=== PATIENT | female | born 1940 | race Caucasian/White ===

== ENCOUNTER 2023-10-07 16:03 | Emergency (ER) | payer SELFPAY ==
[2023-10-07] VITALS (8 sets, daily range): BP systolic 157–180; BP diastolic 68–88
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
[2023-10-07] MEDS: TYLENOL 1000 MG PO (18:31)
[2023-10-07 18:47] LABS: % Basophils 0.5 % (0-2); % Eosinophils 0.5 % (0-6); % Immature Granulocytes 0.8 % (0-0.5); % Lymphocytes 16.1 % (20.5-51.1); % Monocytes 5.7 % (1.7-9.3); % Neutrophils 76.4 % (42.2-75.2); Absolute Basophils 0.1 10^3/uL (0-0.2); Absolute Eosinophils 0.1 10^3/uL (0-0.7); Absolute Immature Granulocytes 0.1 10^3/uL (0-0.05); Absolute Monocytes 1.1 10^3/uL (0.1-0.6); Absolute Neutrophils 14.1 10^3/uL (1.4-6.5); Hematocrit 32.6 % (37.0-47.0); Hemoglobin 10.6 g/dL (12.0-16.0); Mean Corp Hgb Conc. 32.5 g/dL (33.0-37.0); Mean Corpuscular Hgb 20.7 pg (27.0-31.0); Mean Corpuscular Volume 63.8 fL (81.0-99.0); Nucleated Red Blood Cells % 0 %; Platelet Count 276 10^3/uL (130-400); Red Blood Cell Count 5.11 10^6/uL (4.20-5.40); Red Cell Dist. Width 19.5 % (11.5-14.5); White Blood Cell Count 18.5 10^3/uL (4.8-10.8)
[2023-10-07 19:00] LABS: ALT (SGPT) 31 U/L (0-35); AST (SGOT) 48 U/L (14-36); Albumin 4.4 g/dl (3.5-5.0); Alkaline Phosphatase 75 U/L (38-126); Blood Urea Nitrogen 12 mg/dl (7-17); Calcium 9.2 mg/dl (8.4-10.2); Carbon Dioxide 26 mmol/L (22-30); Chloride 105 mmol/L (98-107); Glucose 103 mg/dl (70-99); Potassium 3.8 mmol/L (3.5-5.1); Sodium 140 mmol/L (135-145); Total Bilirubin 0.7 mg/dl (0.2-1.3); eGFR > 60.00
[2023-10-07] MEDS: MORPHINE SULFATE 1 MG IV (20:38)
== END 2023-10-07 20:52 | disposition home or self-care (01) ==
LOC: EMR 16:03
PROVIDERS: Physician Assistant; EMERGENCY PHYSICIAN Emergency Medicine; FAMILY PHYSICIAN Internal Medicine
DX: M25.562 Pain in left knee (principal); V43.62XA Car passenger injured in collision with other type car in traffic accident, initial encounter; R03.0 Elevated blood-pressure reading, without diagnosis of hypertension; E78.5 Hyperlipidemia, unspecified
CPT/HCPCS: 99285; 96374; 70450; 71260; 72125; 73564; 74177; 80053; 85025; 93005; Q9967

== ENCOUNTER 2024-03-14 15:04 | Inpatient (IN) | payer OTHER, SELFPAY ==
[2024-03-13] VITALS (8 sets, daily range): BP systolic 143–178; BP diastolic 65–75; BMI 30.6
[2024-03-13 17:49] LABS: Glucose - Point of Care 142 mg/dl (70-99)
--- NOTE | 2024-03-13 18:04 | ED.CVA ---
History of Present Illness
General
Chief Complaint: CVA/TIA Symptoms
Source: patient and ambulance crew
Exam Limitations: none
Time Seen by Provider: 03/13/24 17:49
Onset of Stroke Symptoms
Onset of symptoms known: Yes
Date of onset of symptoms: 03/13/24
Time of onset of symptoms: 17:00
Time pt last seen normal is known: Yes
Date last time pt seen normal: 03/13/24
Time last time pt seen normal: 17:00
History of Present Illness
History of Present Illness:
83-year-old female normal neurologic history presents with sudden onset of brief right arm weakness that self resolved but ongoing aphasia and facial droop while at dinner at [employer]. Started at 5 PM. Was still present upon medic arrival at
about 530. However was resolved by the time she arrived here. No history of same.
Past History
Past History
ED Past Medical History: GERD, Valvular disease (Mitral regurgitation) and Other (Restless leg syndrome and depression, prior vasovagal episodes)
ED Past Surgical History: Orthopedic (Microdiscectomy lumbar spine)
Social History
Tobacco: Non-smoker
Personal:
Living: with family
Family History
Family History: Unable to obtain
Review of Systems
Review of Systems
All Other Systems: Not applicable
Constitutional: Reports no symptoms
Respiratory: Reports no symptoms
Cardiac: Reports no symptoms
ABD/GI: Reports no symptoms
Phy Exam
Physical Exam
Physical Exam:
GENERAL: Alert and oriented in no apparent distress
EYE: Orbits normal. Extraocular muscles intact
NECK: Supple, no carotid bruit
CARDIAC: Regular rate and rhythm without any obvious murmurs.
LUNGS: Clear breath sounds,normal
ABDOMEN: Soft, without focal tenderness or distention
NEUROLOGICAL: Alert and oriented , speech normal and tested with our stroke papers. Cranial nerves II through XII intact. Extraocular muscles intact. [id number] normal. No drift. Good lower extremity strength. Light touch intact.
SKIN: Warm and dry, no rash or lesion, no discoloration, skin intact.
MUSCULOSKELETAL: No edema,no deformity.Good color
PSYCH: Normal and appropriate interaction.
Course
Orders/Labs/Results
Orders:
Orders
03/13/24 17:45
Electrocardiogram (*1) Urgent
Reason for Study: TIA/Stroke
CT HEAD STROKE ALERT W/o Cont Urgent
Comment:
Reason For Exam: aphasia
CT HEAD/NECK ANG STROKE ALERT Urgent
Comment:
Reason For Exam: aphasia
EKG- Treatment ONCE
03/13/24 18:20
Complete Blood Count/With Diff Urgent
Comprehensive Metabolic Panel Urgent
PT/INR [Prothrombin Time] Urgent
PTT Urgent
03/13/24 18:50
Aspirin Chewable [Low Strength Aspirin] 324 mg PO NOW STA
Clopidogrel Bisulfate [Plavix] 75 mg PO NOW STA
03/13/24 19:38
Admit/Transfer Patient As Directed
Co-Sign Provider:
Level of Care: Observation services
Assign to:: Telemetry
Physician / Group: hospitalist
Diagnosis: TIA
Reason for Telemetry: CVA/TIA
Date to Stop Telemetry: 03/16/24
Time to Stop Telemetry: 11:00
PRN Pain Medication Management As Directed
May give lesser potent ordered pain med per pt: Yes
preference::
Protocol:: Medication orders for pain may be administered in a
manner that supports deferring to patient preference
when the pt is:
- Requesting an ordered lesser potent pain medication.
Least to most potent pain medications are defined
as: acetaminophen < NSAID < tramadol < opioids
(morphine, oxycodone, hydromorphone).
- Requesting a lesser dose of the same medication IF
ORDERED.
- Requesting a less intrusive route of administration
if both routes are prescribed by the provider (PO <
IV).
03/13/24 19:39
Code Status As Directed
Resuscitation Status: Full Code
03/13/24 19:43
Nebivolol HCl [Bystolic] 2.5 mg PO ONCE ONE
03/13/24 22:39
Acetaminophen [Tylenol/Feverall] 650 mg RECTAL Q4HPRN PRN
Acetaminophen [Tylenol] 650 mg PO Q4HPRN PRN
Gabapentin [Neurontin] 100 mg PO HS
03/13/24 22:39
Echo 2D MMode Color/Doppler Routine
Reason for Study: stroke/TIA
Case Management Consult ONCE
Case Management Consult: Discharge Planning
Comment: stroke/tia
NEUROLOGY CONSULT Routine
Consulting Provider: Federico Sam
Was physician already notified: Yes
Reason for consult: cva/tia
Straw Hat Presser Urgent
MR Brain Without Contrast Routine
Comment:
Reason For Exam: stroke/TIA
Recent pill cam endoscopy?: No
Activity As Directed
Activity Level: With Assistance
NIH Stroke Scale As Directed
Directions: Per protocol
Comment: every shift and with any change in condition or mental status
Neurological Checks As Directed
Frequency: q4h
Additional Instructions:: q4h x 24h upon admission to the floor, then qshift & with any change in condition
and mental status
Patient Education As Directed
Type: Stroke education packet
Comment: provide to patient and family
Pneumatic Compression Sleeves As Directed
Type: Knee high
Vital Signs As Directed
Frequency: Per unit guidelines
Ot Eval And Treat Routine
Pt Eval And Treat Routine
Activity Level: With Assistance
Speech Therapy Eval & Treat Routine
DX Deep Vein Thrombosis Video Routine
03/14/24 06:00
Cardiovascular Evaluation IN AM
Complete Blood Count/No Diff IN AM
Erythrocyte Sed Rate IN AM
Glycohemoglobin (HgbA1c) IN AM
03/14/24 08:00
Aspirin Chewable [Low Strength Aspirin] 81 mg PO DAILY
Atorvastatin [Lipitor] 20 mg PO DAILY
Clopidogrel Bisulfate [Plavix] 75 mg PO DAILY
Escitalopram Oxalate [Lexapro] 20 mg PO DAILY
Pantoprazole [Protonix] 40 mg PO DAILY
03/14/24 18:00
Enoxaparin Sodium [Lovenox] 40 mg SC QPM
Nebivolol HCl [Bystolic] 2.5 mg PO QPM
03/16/24 11:00
DC Protocol for Telemetry ONCE
Abnormal Lab Results
03/13/24 03/13/24
17:48 18:20
WBC 14.9 H 10^3/uL
(4.8-10.8)
Hgb 11.2 L g/dL
(12.0-16.0)
Hct 35.8 L %
(37.0-47.0)
MCV 66.5 L fL
(81.0-99.0)
MCH 20.8 L pg
(27.0-31.0)
MCHC 31.3 L g/dL
(33.0-37.0)
RDW 19.1 H %
(11.5-14.5)
MPV 10.7 H fL
(7.4-10.4)
Abs Immat Gran (auto) 0.1 H 10^3/uL
(0-0.05)
Absolute Neuts (auto) 8.2 H 10^3/uL
(1.4-6.5)
Absolute Lymphs (auto) 5.4 H 10^3/uL
(1.2-3.4)
Absolute Monos (auto) 1.0 H 10^3/uL
(0.1-0.6)
Immature Gran % 0.6 H %
(0-0.5)
Glucose 134 H mg/dl
(70-99)
POC Glucose 142 H mg/dl
(70-99)
03/13/24 18:20
03/13/24 18:20
Vital Signs
Initial and Last Documented VS:
Initial Vital Signs
Pulse Ox
97
03/13/24 17:43
Last Documented Vital Signs
Temp Pulse Resp BP Pulse Ox
98.1 F 65 18 143/73 97
03/13/24 18:38 03/13/24 22:15 03/13/24 18:38 03/13/24 22:00 03/13/24 22:15
MDM/Problems Addressed
Differential Diagnosis Includes:
History all consistent with TIA. Symptoms have resolved. Sent for CT and CTA. Previous renal function was normal. Discussed with neurology. If all is stable start aspirin and loaded with Plavix 300 mg. Family updated
*Radiology
Radiology exam reviewed: radiology read reviewed (neg head)
*Pulse Oximetry
Patient hypoxic: no
*EKG
Interpreted by ED Provider?: Yes
Interpretation: normal
Comparison EKG: no changes
Heart Rate: 81
Rate: normal
Rhythm: sinus
[place]: normal axis
Interval: normal interval
QRS Pattern: normal QRS
Ischemia: no ischemia
*Critical Care Note
Total Time (30-74mins, 75-104mins- exclusive of procedures): 45
Data Reviewed
Review of Other/Old Records Reveals: Labs and Testing
ED Attending Note
-
Portions of this chart may have been created with voice recognition software.� Occasional wrong word or��sound alike� substitutions may have occurred due to the inherent limitations of voice recognition software.
Discharge Plan
Departure
Patient Disposition: Admit
Date of Disposition: 03/13/24
Time of Disposition: 19:04
Presentation/result/management discussed w/ accepting MD/DO: Neurology/Sam
Discharge Problem:
Expressive aphasia TIA
Interventions
Interventions:
*Risk Screen - Suicide Last Done: 03/13/24 18:38
*General Assessment Last Done: 03/13/24 18:38
*Neglect/Abuse Screening Last Done: 03/13/24 18:38
ED- Fall Risk Assessment Last Done: 03/13/24 18:59
*ED COVID-19 Vaccine History Last Done: 03/13/24 18:38
ED- Pulmonary Assessment Last Done: 03/13/24 18:59
ED- Neurological Assessment Last Done: 03/13/24 18:59
ED- Cardiac Assessment Last Done: 03/13/24 18:59
ED Swallowing Screen Last Done: 03/13/24 18:59
[2024-03-13 18:27] LABS: % Basophils 0.6 % (0-2); % Eosinophils 1.1 % (0-6); % Immature Granulocytes 0.6 % (0-0.5); % Lymphocytes 36.3 % (20.5-51.1); % Monocytes 6.5 % (1.7-9.3); % Neutrophils 54.9 % (42.2-75.2); Absolute Basophils 0.1 10^3/uL (0-0.2); Absolute Eosinophils 0.2 10^3/uL (0-0.7); Absolute Immature Granulocytes 0.1 10^3/uL (0-0.05); Absolute Lymphocytes 5.4 10^3/uL (1.2-3.4); Absolute Neutrophils 8.2 10^3/uL (1.4-6.5); Hematocrit 35.8 % (37.0-47.0); Hemoglobin 11.2 g/dL (12.0-16.0); Mean Corp Hgb Conc. 31.3 g/dL (33.0-37.0); Mean Corpuscular Hgb 20.8 pg (27.0-31.0); Mean Corpuscular Volume 66.5 fL (81.0-99.0); Mean Platelet Volume 10.7 fL (7.4-10.4); Nucleated Red Blood Cells % 0 %; Platelet Count 322 10^3/uL (130-400); Red Blood Cell Count 5.38 10^6/uL (4.20-5.40); Red Cell Dist. Width 19.1 % (11.5-14.5); White Blood Cell Count 14.9 10^3/uL (4.8-10.8)
[2024-03-13 18:39] LABS: APTT 26.6 Sec (23.4-35.0); INR 1.01; PT 13.6 Sec (11.4-14.6)
[2024-03-13 18:42] LABS: ALT (SGPT) 22 U/L (0-35); AST (SGOT) 22 U/L (14-36); Albumin 4.5 g/dl (3.5-5.0); Alkaline Phosphatase 62 U/L (38-126); Blood Urea Nitrogen 17 mg/dl (7-17); Calcium 9.3 mg/dl (8.4-10.2); Carbon Dioxide 26 mmol/L (22-30); Chloride 103 mmol/L (98-107); Estimated Creatinine Clearance 62 ml/min; Glucose 134 mg/dl (70-99); Potassium 3.8 mmol/L (3.5-5.1); Sodium 138 mmol/L (135-145); Total Bilirubin 0.6 mg/dl (0.2-1.3); eGFR > 60.00
[2024-03-13] MEDS: LOW STRENGTH ASPIRIN 324 MG PO (19:18)
[2024-03-13] MEDS: PLAVIX 75 MG PO (19:19)
--- NOTE | 2024-03-13 19:30 | HPS.HSE ---
Family Physician
-
Family Physician:
Chief Complaint
-
Aphasia
History of Present Illness
This is an 83-year-old with past medical history significant for hyperlipidemia, GERD, anxiety and history of palpitations who presents to the emergency department from independent living with episode of aphasia that started at around 5 PM.
Patient reports denies any usual state of health without any symptoms. She exercised for about 25 minutes on a stationary bicycle which is a little bit unusual for her but was otherwise doing well except for some fatigue. She was resting in her
home at 5 PM when she realized that she could not speak what she wanted to say. Facility members also noted that she had a right facial droop. Patient reported that there was a very brief episode lasting perhaps less than a minute or for right arm
weakness and numbness. She denies any blurry vision or double vision. She denies any other symptoms. By the time she arrived in the emergency department symptoms are mostly resolved. There was no facial droop and the aphasia are mostly resolved.
Patient denies any prior history of TIA. She has palpitations but that never been diagnosed with any arrhythmia.
In the emergency department she was initially hypertensive 178/71 with a pulse of 68 satting 99% on room air. Basic electrolytes BUN/creatinine were normal. CBC notable for a white count of [address] of the head shows no
acute bleed and no mass effect or significant stroke. CT angio of the head and neck shows patent vessels throughout without any dissection aneurysm thrombus no critical stenosis. Patient discussed with neurology. Recommending initiation of dual
antiplatelet therapy.
Medical History
Past Medical History
Past Medical History: Reports GERD and Hypercholesterolemia
Past Surgical History: Reports Orthopedic (R ankle surgery)
Social History
Tobacco: Non-smoker
Alcohol: Occasional
Drug: None
Personal: Single
Living: Assisted Living
Employment: Retired
Family History
Family History: Not pertinent
Allergies / Home Medications
Allergies reflects when Allergies were last updated in [employer].
Home Medications with original date entered in [employer]
Allergy/Medication List:
Allergies
Allergy/AdvReac Type Severity Reaction Status Date / Time
Penicillins Allergy Hives Verified 03/13/24 18:16
Sulfa (Sulfonamide Allergy Swelling Verified 03/13/24 18:16
Antibiotics)
Home Medications
escitalopram oxalate 20 mg tablet 20 mg PO DAILY 04/01/13
gabapentin 100 mg capsule 100 mg PO HS 04/01/13
omeprazole 20 mg tablet,delayed release 40 mg PO DAILY 04/01/13
simvastatin 40 mg tablet 40 mg PO DAILY 04/01/13
nebivolol 2.5 mg tablet (Bystolic) 2.5 mg PO QPM 10/07/23
calcium 500 mg (as carbonate)-vitamin D3 10 mcg (400 unit) tablet (Calcium 500 + D) 1 tab PO BID 03/13/24
chlordiazepoxide-clidinium 5 mg-2.5 mg capsule 1 cap PO BIDPRN PRN ibs 03/13/24
denosumab 60 mg/mL subcutaneous syringe (Prolia) 60 mg SC [id number] 03/13/24
Review of Systems
-
History Source: Patient
Constitutional: Reports No Symptoms
EENT: Reports No Symptoms
Respiratory: Reports No Symptoms
Cardiac: Reports No Symptoms
Abdomen/GI: Reports No Symptoms
: Reports No Symptoms
Musculoskeletal: Reports No Symptoms
Skin: Reports No Symptoms
Neurological: Reports Other (word finding difficulty)
Endocrine: Reports No Symptoms
Hematologic/Lymphatic: Reports No Symptoms
Psych: Reports No Symptoms
Physical Exam
Vital Signs
Vital Signs
Temp Pulse Resp BP Pulse Ox
98.1 F 68 18 178/71 99
03/13/24 18:38 03/13/24 18:38 03/13/24 18:38 03/13/24 18:38 03/13/24 18:38
Physical Exam
General: Well Developed, Well Nourished, No Apparent Distress and Comfortable
HEENT: NormoCephalic, Moist mucous membranes, Atraumatic and PERRLA
Respiratory: Clear
Cardiac: S1/S2 and Regular Rhythm
Breast: Deferred by me
GI: Soft, Non Tender, Non Distended and Normal Bowel Sounds
Rectal: Deferred by Provider
Genito-urinary: Deferred by me
Musculoskeletal: No Clubbing and No Cyanosis
Skin: Warm
Neuro: AO x 3, No Motor Deficits, Cranial Nerves Intact and No Sensory Deficits
Hematologic/Lymphatic: No Lymphadenopathy
Psych: Calm
Laboratory Results
-
03/13/24 18:20
03/13/24 18:20
Laboratory Results
PT 13.6 Sec (11.4-14.6) 03/13/24 18:20
INR 1.01 03/13/24 18:20
APTT 26.6 Sec (23.4-35.0) 03/13/24 18:20
Total Bilirubin 0.6 mg/dl (0.2-1.3) 03/13/24 18:20
AST 22 U/L (14-36) 03/13/24 18:20
ALT 22 U/L (0-35) 03/13/24 18:20
Alkaline Phosphatase 62 U/L (38-126) 03/13/24 18:20
Data Reviewed
-
CT Scan: Report Reviewed by me
Medical Tests (Nuc Med, Echo, EKG etc): Image Personally Visualized and interpreted
Lab Data: Labs Reviewed by me
Old Records: Reviewed
Impression/Plan
-
IMPRESSION:
83 F with hld presenting with aphasia and facial droop lasting about 2 hours now mostly resolved consistent with TIA or small CVA. Initial imaging with CTH and CTA H&N shows no acute abnormalities. Case d/w neurology.
PLAN:
1. CVA/TIA
- admit to telemetry observation
- passed swallow, start aspirin/plavix
- continue simvastatin for now
- check tsh, cardiovascular panel, b12, esr
- check echo and MRI in am
- PT evaluation
2. GERD
- continue PPI daily
3. Paliptiaton - no known afib
- telemetry
- continue beta blockade
DVT PPX - lovenox sq
Code status - Full Code
[2024-03-13] MEDS: BYSTOLIC 2.5 MG PO (19:59)
[2024-03-14] VITALS (11 sets, daily range): BP systolic 125–163; BP diastolic 57–85; PULSE 61–66; O2SAT 95
[2024-03-14] MEDS: PLAVIX 225 MG PO (00:08)
[2024-03-14] MEDS: NEURONTIN 100 MG PO (00:08)
[2024-03-14 06:29] LABS: Hematocrit 33.9 % (37.0-47.0); Hemoglobin 10.6 g/dL (12.0-16.0); Mean Corp Hgb Conc. 31.3 g/dL (33.0-37.0); Mean Corpuscular Hgb 20.9 pg (27.0-31.0); Platelet Count 290 10^3/uL (130-400); Red Blood Cell Count 5.06 10^6/uL (4.20-5.40); Red Cell Dist. Width 19.1 % (11.5-14.5); White Blood Cell Count 13.3 10^3/uL (4.8-10.8)
[2024-03-14 06:56] LABS: HDL Cholesterol 75 mg/dl; LDL Cholesterol, Calculated 96 mg/dl; Total Cholesterol 189 mg/dl (50-199); Triglyceride 94 mg/dl (10-149); Very Low Density Lipoprotein 18 mg/dl (0-30)
[2024-03-14 07:45] LABS: Erythrocyte Sed Rate 17 mm/hour (0-20)
[2024-03-14] MEDS: PROTONIX 40 MG PO (07:51)
[2024-03-14] MEDS: PLAVIX 75 MG PO (07:51)
[2024-03-14] MEDS: LEXAPRO 20 MG PO (07:51)
[2024-03-14] MEDS: LIPITOR 20 MG PO (07:51)
[2024-03-14] MEDS: LOW STRENGTH ASPIRIN 81 MG PO (07:51)
--- NOTE | 2024-03-14 08:10 | CON.NEURO ---
Consultation
Order
Date of Consultation: 03/14/24
Requesting Provider: Silvia Perales MD
Reason for Consult: TIA/CVA
CC:
HPI: This is a an 83-year-old RH woman who presented to [facility] on 03/13/2024 with transient language dysfunction.
from independent living with episode of aphasia that started at around 5 PM.
According to the patient she developed sudden onset of right arm/hand weakness/numbness, along with expressive aphasia lasting for around 15 minutes that occurred at 5 PM on 03/13/2024.
Ms. Parada reports ongoing right nasal numbness. No reports of headaches, change in vision, motor or sensory deficits in the right leg or abnormal movements.
The patient is aspirin na�ve.
ER VS: 178/70, 90-44, afebrile.
EKG: NSR, QTc Int : 469 ms
PDMP: Chlordiazepoxide-Clidinium
Labs: glucose�134, normal sodium, creatinine, calcium, WBCs�14.9, hemoglobin�11.2, platelets�322, LDL�96.
CT head-few small stable regions of chronic white matter diminished attenuation.
CTA head/neck-\\no evidence of hemodynamically significant stenosis.
PMH: GERD, osteoporosis, cervical DJD, diverticulosis, diffuse hepatic steatosis
PSH: L5-S1 laminectomy, left ankle ORIF, bilateral oophorectomies,
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
FH: Mother-developed cognitive deficits in her late 70s. Father at 51 from CAD
All: PNC, Sulfas
ROS: Constitutional: Negative. Negative for chills, fever and unexpected weight change.
HENT: Positive for hearing impairment
Eyes: Negative. Negative for photophobia, pain and visual disturbance.
Respiratory: Negative for cough, choking and shortness of breath.
Cardiovascular: Negative for chest pain, palpitations and leg swelling.
Gastrointestinal: Negative for abdominal pain and vomiting.
Endocrine: Negative. Negative for cold intolerance.
Genitourinary: Positive for intermittent UI
Musculoskeletal: Positive for chronic mild lower back pain
Skin: Negative for rash.
Allergic/Immunologic: Negative. Negative for immunocompromised state.
Neurological: Positive for right facial numbness, transient language dysfunction
Psychiatric/Behavioral: Negative for behavioral problems
General: Well developed. In no acute distress.
Cardio: Regular rate. Extremities are without cyanosis or edema.
Neuro:
Mental Status: Alert, oriented to person, place, and date. Normal attention and recall. No acalculia. Good fund of knowledge. Follows complex requests across the midline. Comprehension, naming, and repetition intact.
Cranial Nerves: . Pupils are equally round and reactive to light. EOMs full. Visual harrison full to confrontation. No ptosis. No nystagmus. V1-V3 intact to light touch and pinprick bilaterally, symmetric. Face symmetric. Impaired hearing AU.
The palate elevated well. SCMs and traps 5/5. Tongue midline. No dysarthria.
Motor: Normal bulk and tone. No pronator or arm drift. Strength 5/5 throughout. No clonus.
Reflexes: Limited exam due to positioning/cooperation. Negative clonus and Carrol's bilaterally.
Sensory: Reduced vibration at the toes and ankles
Coordination: No dysmetria or tremor.
Gait: deferred
Assessment and Plan:
I. Acute left MCA syndrome. Likely etiology�vascular
II. Hypertensive emergency
III. 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 History of L5-S1 radiculopathy.
-Continue Telemetry monitoring.
-Cautious lowering of BP by approximately 15 % during the first 24 hours is SBP >220 mmHg or diastolic blood pressure >120 mmHg
-Restart antihypertensive medications during if BP>140/90 mmHg who are neurologically stable in 24 to 48 hours after stroke onset
-TTE with bubble studies, if unremarkable-please proceed with CORY.
-Start ASA 81 mg QD indefinitely
-Plavix 75 mg QD for 21 days.
-Lipitor 40 mg QHS.
-Brain MRI without lucien
-Polyneuropathy blood work
-Loop recorder if no events of Telemetry and normal CORY.
-PT.
-DVT prophylaxis.
I personally reviewed all radiology and labs along with past medical records pertinent to current medical problems. Total time spent in patient care is 61 minutes.
Thank you for allowing us to participate in the care of this patient. We will continue to follow. Please do not hesitate to contact us with any questions or concerns.
Subjective/Objective
Subjective Data
Date of Service: March 14, 2024
Objective Data
Vital Signs
Temp Pulse Resp BP Pulse Ox
36.7 C 73 16 140/70 97
03/13/24 18:38 03/14/24 07:50 03/14/24 07:50 03/14/24 07:50 03/14/24 07:50
Lab Results
03/14/24 06:08
03/13/24 18:20
PT 13.6 Sec (11.4-14.6) 03/13/24 18:20
INR 1.01 03/13/24 18:20
APTT 26.6 Sec (23.4-35.0) 03/13/24 18:20
Sodium 138 mmol/L (135-145) 03/13/24 18:20
Potassium 3.8 mmol/L (3.5-5.1) 03/13/24 18:20
BUN 17 mg/dl (7-17) 03/13/24 18:20
Glucose 134 mg/dl (70-99) H 03/13/24 18:20
Calcium 9.3 mg/dl (8.4-10.2) 03/13/24 18:20
LDL Cholesterol, Calc 96 mg/dl 03/14/24 06:08
Patient Allergies
Penicillins Allergy (Verified 03/13/24 18:16)
Hives
Sulfa (Sulfonamide Antibiotics) Allergy (Verified 03/13/24 18:16)
Swelling
Medications
-
Active Medications
Generic Name Dose Route Start Last Admin
Trade Name Freq PRN Reason Stop Dose Admin
Acetaminophen 650 mg 03/13/24 22:39
Acetaminophen 650 Mg Rectal Suppository RECTAL 04/10/24 22:38
Q4HPRN PRN
PARSONS, mild pain, or temp >100.4F
Acetaminophen 650 mg 03/13/24 22:39
Acetaminophen 325 Mg Tablet PO 04/10/24 22:38
Q4HPRN PRN
PARSONS, mild pain, or temp >100.4F
Aspirin 81 mg 03/14/24 08:00 03/14/24 07:51
Aspirin 81 Mg Chewable Tablet PO 04/11/24 07:59 81 mg
DAILY KIARA Administration
Atorvastatin Calcium 20 mg 03/14/24 08:00 03/14/24 07:51
Atorvastatin (Lipitor) 20 Mg Tablet PO 04/11/24 07:59 20 mg
DAILY KIARA Administration
Clopidogrel Bisulfate 75 mg 03/14/24 08:00 03/14/24 07:51
Clopidogrel 75 Mg Tablet PO 04/11/24 07:59 75 mg
DAILY KIARA Administration
Enoxaparin Sodium 40 mg 03/14/24 18:00
Enoxaparin Sodium 40 Mg/0.4 Ml Syringe SC 04/11/24 17:59
QPM KIARA
Escitalopram Oxalate 20 mg 03/14/24 08:00 03/14/24 07:51
Escitalopram 20 Mg Tablet PO 04/11/24 07:59 20 mg
DAILY KIARA Administration
Gabapentin 100 mg 03/13/24 22:39 03/14/24 00:08
Gabapentin 100 Mg Capsule PO 04/10/24 22:38 100 mg
HS KIARA Administration
Nebivolol 2.5 mg 03/14/24 18:00
Nebivolol Hcl 2.5 Mg Tablet PO 04/11/24 17:59
QPM KIARA
Pantoprazole Sodium 40 mg 03/14/24 08:00 03/14/24 07:51
Pantoprazole 40 Mg Delayed Release Tablet PO 04/11/24 07:59 40 mg
DAILY KIARA Administration
Sodium Chloride 0 flush 03/13/24 22:00
Sodium Chloride 0.9% (Flush) Syringe IV 04/10/24 21:59
PER PROTOCOL KIARA
Home Medications
�Medication �Instructions �Recorded
escitalopram oxalate 20 mg tablet 20 mg PO DAILY 04/01/13
gabapentin 100 mg capsule 100 mg PO HS 04/01/13
omeprazole 20 mg tablet,delayed 40 mg PO DAILY 04/01/13
release
simvastatin 40 mg tablet 40 mg PO DAILY 04/01/13
nebivolol 2.5 mg tablet (Bystolic) 2.5 mg PO QPM 10/07/23
calcium 500 mg (as 1 tab PO BID 03/13/24
carbonate)-vitamin D3 10 mcg (400
unit) tablet (Calcium 500 + D)
chlordiazepoxide-clidinium 5 1 cap PO BIDPRN PRN ibs 03/13/24
mg-2.5 mg capsule
denosumab 60 mg/mL subcutaneous 60 mg SC [id number] 03/13/24
syringe (Prolia)
Vital Signs and Labs
-
Vital Signs and Labs:
Vital Signs
Temp Pulse Resp BP Pulse Ox
36.7 C 73 16 140/70 97
03/13/24 18:38 03/14/24 07:50 03/14/24 07:50 03/14/24 07:50 03/14/24 07:50
Lab Results
03/14/24 06:08
03/13/24 18:20
PT 13.6 Sec (11.4-14.6) 03/13/24 18:20
INR 1.01 03/13/24 18:20
APTT 26.6 Sec (23.4-35.0) 03/13/24 18:20
Sodium 138 mmol/L (135-145) 03/13/24 18:20
Potassium 3.8 mmol/L (3.5-5.1) 03/13/24 18:20
BUN 17 mg/dl (7-17) 03/13/24 18:20
Glucose 134 mg/dl (70-99) H 03/13/24 18:20
Calcium 9.3 mg/dl (8.4-10.2) 03/13/24 18:20
LDL Cholesterol, Calc 96 mg/dl 03/14/24 06:08
Medications
-
Medications:
Generic Name Dose Route Start Last Admin
Trade Name Freq PRN Reason Stop Dose Admin
Acetaminophen 650 mg 03/13/24 22:39
Acetaminophen 650 Mg Rectal Suppository RECTAL 04/10/24 22:38
Q4HPRN PRN
PARSONS, mild pain, or temp >100.4F
Acetaminophen 650 mg 03/13/24 22:39
Acetaminophen 325 Mg Tablet PO 04/10/24 22:38
Q4HPRN PRN
PARSONS, mild pain, or temp >100.4F
Aspirin 81 mg 03/14/24 08:00 03/14/24 07:51
Aspirin 81 Mg Chewable Tablet PO 04/11/24 07:59 81 mg
DAILY KIARA Administration
Atorvastatin Calcium 20 mg 03/14/24 08:00 03/14/24 07:51
Atorvastatin (Lipitor) 20 Mg Tablet PO 04/11/24 07:59 20 mg
DAILY KIARA Administration
Clopidogrel Bisulfate 75 mg 03/14/24 08:00 03/14/24 07:51
Clopidogrel 75 Mg Tablet PO 04/11/24 07:59 75 mg
DAILY KIARA Administration
Enoxaparin Sodium 40 mg 03/14/24 18:00
Enoxaparin Sodium 40 Mg/0.4 Ml Syringe SC 04/11/24 17:59
QPM KIARA
Escitalopram Oxalate 20 mg 03/14/24 08:00 03/14/24 07:51
Escitalopram 20 Mg Tablet PO 04/11/24 07:59 20 mg
DAILY KIARA Administration
Gabapentin 100 mg 03/13/24 22:39 03/14/24 00:08
Gabapentin 100 Mg Capsule PO 04/10/24 22:38 100 mg
HS KIARA Administration
Nebivolol 2.5 mg 03/14/24 18:00
Nebivolol Hcl 2.5 Mg Tablet PO 04/11/24 17:59
QPM KIARA
Pantoprazole Sodium 40 mg 03/14/24 08:00 03/14/24 07:51
Pantoprazole 40 Mg Delayed Release Tablet PO 04/11/24 07:59 40 mg
DAILY KIARA Administration
Sodium Chloride 0 flush 03/13/24 22:00
Sodium Chloride 0.9% (Flush) Syringe IV 04/10/24 21:59
PER PROTOCOL KIARA
Home Medications
-
Home Medications
escitalopram oxalate 20 mg tablet 20 mg PO DAILY 04/01/13
gabapentin 100 mg capsule 100 mg PO HS 04/01/13
omeprazole 20 mg tablet,delayed release 40 mg PO DAILY 04/01/13
simvastatin 40 mg tablet 40 mg PO DAILY 04/01/13
nebivolol 2.5 mg tablet (Bystolic) 2.5 mg PO QPM 10/07/23
calcium 500 mg (as carbonate)-vitamin D3 10 mcg (400 unit) tablet (Calcium 500 + D) 1 tab PO BID 03/13/24
chlordiazepoxide-clidinium 5 mg-2.5 mg capsule 1 cap PO BIDPRN PRN ibs 03/13/24
denosumab 60 mg/mL subcutaneous syringe (Prolia) 60 mg SC [id number] 03/13/24
[2024-03-14 09:58] LABS: Glycohemoglobin (HgbA1c) 5.5 % (4.0-5.6)
--- NOTE | 2024-03-14 10:13 | PTOTSP ---
RECORD PRESS SUPERVISOR Evaluations
Oral/pharyngeal swallowing suspected to be grossly WFL based on clinical bedside swallowing evaluation. No signs of aphasia or dysarthria. Quick Aphasia Battery Form 1 score = 9.63, WFL.
Recommend:
1. Regular, Thin Liquids
2. Medications as best tolerated
3. Reflux precautions given hx of GERD
No further dysphagia therapy warranted at the acute care level. Will screen higher level cognitive skills pending results of MRI of Brain.
--- NOTE | 2024-03-14 11:47 | W.PN.HOSP.TC ---
Addendum entered and electronically signed by Jitendra Madrid DO 03/14/24 15:27:
Brain MRI confirms small acute ischemic infarcts in the posterior left frontal lobe and anterior left parietal lobe. Small acute ischemic infarcts in the periventricular and subcortical white matter of the left parietal lobe.
Rhythm remained sinus on the monitor.
Can arrange for outpatient locksmith helper to rule out occult atrial fibrillation or flutter.
I spoke with neurology, they are okay with foregoing echocardiogram as it would likely not global climate change analyst.
Ok for discharge today.
Original Note:
Today's Communication/Plan
-
Await brain MRI
TTE
Assessment / Plan
Assessment / Plan
Gen-AAOx3, NAD
HEENT-NC, AT, anicteric, clear oral mm
Neck-supple
CV-reg, no M, +S1/S2
Lungs-clear B/L
Abd-soft, NT, ND
Ext-no edema
Musculoskeletal-no cyanosis, clubbing
Skin-warm and dry
Neuro-grossly non-focal
Psych-calm, cooperative
TIA versus acute stroke -presentation with right facial droop, right sided facial numbness, expressive aphasia. Symptoms lasted for 15 minutes. Await brain MRI. Monitor on telemetry. Neurology following.
Dual antiplatelet therapy per neurology.
Neurology has requested TTE.
PT/OT recommends outpatient therapy.
Hyperlipidemia -on simvastatin 40 mg daily. LDL 96. Total cholesterol 189, triglycerides 94. On atorvastatin 20 mg daily in the hospital.
Chronic palpitations -on Bystolic 2.5 mg at bedtime. Denies history of cardiac arrhythmia. Used a locksmith helper many years ago without a clear diagnosis.
GERD
Obesity due to excess calories
Full code
Anticipated Discharge: Within 24 hours
Subjective/Interval History
-
Date of Service: March 14, 2024
Patient seen and examined. Still with mild right facial numbness involving the cheek.
Objective Data
-
Labs:
Laboratory Results
03/14/24
06:08
WBC 13.3 H
Hgb 10.6 L
Hct 33.9 L
Plt Count 290
Vital Signs:
Vital Signs
Temp Pulse Resp BP Pulse Ox
98.1 F 71 18 143/74 95
03/14/24 11:12 03/14/24 11:12 03/14/24 11:12 03/14/24 11:12 03/14/24 11:12
I&O
03/13/24 03/14/24 03/15/24
06:59 06:59 06:59
Output Total 1650 / 1650
Balance -1650 / -1650
Review of Systems
-
History Source: Patient
All other systems: Reviewed and negative
[2024-03-14 12:36] LABS: Vitamin B12 487 pg/ml (239-931)
[2024-03-14] MEDS: TYLENOL 650 MG PO ×2 (13:56→15:51)
--- NOTE | 2024-03-14 15:31 | W.DS.TRANS ---
DC Summary - School Photograph Editor
-
Discharge Instructions:
Discharge Diagnosis/Procedures Acute Stroke
Diet Low Cholesterol,Low Fat
Activity As tolerated
Driving Restrictions Not until seen by your Dr
Bathing Restrictions None
Instructions:
Stand-Alone Forms:
Changes to Home Medications: Yes
Discharge Medications:
DC Medications w/original date entered in [employer]
escitalopram oxalate 20 mg tablet 20 mg PO DAILY 04/01/13
gabapentin 100 mg capsule 100 mg PO HS 04/01/13
omeprazole 20 mg tablet,delayed release 40 mg PO DAILY 04/01/13
nebivolol 2.5 mg tablet (Bystolic) 2.5 mg PO QPM 10/07/23
calcium 500 mg (as carbonate)-vitamin D3 10 mcg (400 unit) tablet (Calcium 500 + D) 1 tab PO BID 03/13/24
chlordiazepoxide-clidinium 5 mg-2.5 mg capsule 1 cap PO BIDPRN PRN ibs 03/13/24
denosumab 60 mg/mL subcutaneous syringe (Prolia) 60 mg SC [id number] 03/13/24
aspirin 81 mg chewable tablet 81 mg PO DAILY #60 tabs 03/14/24
atorvastatin 20 mg tablet 20 mg PO DAILY #30 tabs 03/14/24
clopidogrel 75 mg tablet 75 mg PO DAILY #19 tabs 03/14/24
Home Medication Changes
Stop simvastatin.
Pending Results: No
--- NOTE | 2024-03-14 15:55 | PTCARENOTE ---
1030-pt arrived to 2S room 2118 from ED via WC. pt assisted to bed, gait steady. oriented to room, and plan of care with verbalized understanding. Neuro check and NIH completed. stroke packet provided. admission database and assessment
completed as documented.
1230-tolerated lunch without difficulty.
1415-transported to MRI via stretcher, returned to room at 1450 assisted to bed without incident.
--- NOTE | 2024-03-14 16:13 | CM ---
Reviewed the chart notes. Patient resides alone in independent apartment at [facility]. Patient is being discharged to home. PT recommending outpatient therapy. CM continues to be available to patient/family and is monitoring medical plan for
needs at discharge.
Plan: Discharge to home with no additional needs being identified at this time.
== END 2024-03-14 16:45 | disposition home or self-care (01) | DRG 69 ==
LOC: 2 SOUTH 15:04
PROVIDERS: ADMITTING PHYSICIAN Internal Medicine; ATTENDING PHYSICIAN Hospitalist; EMERGENCY PHYSICIAN Emergency Medicine; FAMILY PHYSICIAN Internal Medicine; OTHER PHYSICIAN Psychiatry & Neurology Neurology
DX: G45.9 Transient cerebral ischemic attack, unspecified (principal); I16.1 Hypertensive emergency; G46.0 Middle cerebral artery syndrome; E78.00 Pure hypercholesterolemia, unspecified; K21.9 Gastro-esophageal reflux disease without esophagitis; E66.09 Other obesity due to excess calories; Z68.30 Body mass index [BMI] 30.0-30.9, adult; G62.9 Polyneuropathy, unspecified
CPT/HCPCS: 70450; 70496; 70498; 70551; 80053; 80061; 82607; 82962; 83036; 84155; 84165; 84425; 85025; 85027; 85610; 85652; 85730; 92523; 92610; 93005; 97166; 99291; Q9967

== ENCOUNTER → 2024-08-15 14:51 | Outpatient (REF) | payer OTHER, SELFPAY | LOC: MRI 14:51 | PROVIDERS: ATTENDING PHYSICIAN Physical Medicine & Rehabilitation; FAMILY PHYSICIAN Internal Medicine | DX: M54.16 Radiculopathy, lumbar region (principal) | CPT/HCPCS: 72148 ==